=== PATIENT | male | born 1980 | race Hispanic/Latino ===

== ENCOUNTER 2020-07-27 13:09 | Emergency (ER) | payer MEDICARE ==
--- NOTE | 2020-07-27 14:00 | Event Note ---
ED Screening Note Date of service: 07/27/20 Time: 13:56 ED Screening Note: intermittent pain in the chest, abdomen and penis over the past many years, he states it will occur hourly but is more frequent now. He denies any current pain. This initial assessment/diagnostic orders/clinical plan/treatment(s) is/are subject to change based on patients health status, clinical progression and re- assessment by fellow clinical providers in the ED. Further treatment and workup at subsequent clinical providers discretion. Patient/guardian urged not to elope from the ED as their condition may be serious if not clinically assessed and managed. Initial orders include: UA, labs
[2020-07-27 14:32] LABS: Basophils # (Auto) 0.1 K/mm3 (0.0-0.1); Basophils % (Auto) 1.1 % (0.0-1.8); Eosinophils # (Auto) 0.1 K/mm3 (0.0-0.4); Eosinophils % (Auto) 1.7 % (0.0-4.3); Hematocrit 42.6 % (35.5-45.6); Hemoglobin 14.4 gm/dl (11.8-15.2); Lymphocytes % (Auto) 23.1 % (13.4-35.0); Mean Corpuscular HGB Conc 34 % (32-34); Mean Corpuscular Volume 95 fl (84-94); Monocytes # (Auto) 0.6 K/mm3 (0.0-0.8); Monocytes % (Auto) 6.7 % (0.0-7.3); Platelet Count 266 K/mm3 (140-440); Red Blood Count 4.48 M/mm3 (3.65-5.03); Red Cell Distribution Width 13.1 % (13.2-15.2)
--- NOTE | 2020-07-27 14:33 | XRay Report ---
CHEST 2 VIEWS INDICATION / CLINICAL INFORMATION: chest pain. COMPARISON: None available. FINDINGS: SUPPORT DEVICES: None. HEART / MEDIASTINUM: No significant abnormality. LUNGS / PLEURA: No significant pulmonary or pleural abnormality. No pneumothorax. ADDITIONAL FINDINGS: No significant additional findings. IMPRESSION: 1. No acute findings. Signer Name: Cameron Cooper MD Signed: 07/27/2020 2:28 PM Workstation Name: [id number]
[2020-07-27 15:02] LABS: Alanine Aminotransferase 18 units/L (7-56); Albumin 4.7 g/dL (3.9-5); BUN/Creatinine Ratio 7; Blood Urea Nitrogen 6 mg/dL (9-20); Hemolysis Index 5
[2020-07-27 17:36] VITALS: BP 125/75
--- NOTE | 2020-07-27 17:46 | Emergency Department Report ---
ED Chest Pain HPI - General Chief Complaint: Chest Pain Stated Complaint: DIARERHA/TESTICAL PAIN/DIZZY Time Seen by Provider: 07/27/20 17:06 Source: patient Mode of arrival: Ambulatory Limitations: No Limitations - History of Present Illness Initial Comments: Patient is a 39-year-old male with an apparent history of schizophrenia from the [facility] program of [place]. He is on several current psychiatric medications. He tells me he is from [place]. Apparently he had an involuntary confinement at [facility] initially and then transferred to the [facility] program where he has been for the last 2 weeks. According to the medical screening he has very chronic symp toms: intermittent pain in the chest, abdomen and penis over the past many years, he states it will occur hourly but is more frequent now. He denies any current pain. Patient does not complain of any acute chest pain to me at this time. He does not state that "penis numbness and testicles are hurting. Does not complain of diarrhea. He is not complaining of shortness of breath whatsoever. Is not had any cough. He states he has had a recent "low-grade fever" which he describes as a temperature of 99.2. It does appear that that the patient has quite a number of somatic type symptoms which are nonacute in nature. It would appear that he has a history of schizophrenia. He lists approximately 5 psychiatric medicines that he is taking right now to include Abilify. Patient describes his chest pain to be as associated with "stomach bubbling" and "my heart hurting". He did state he took Zantac in the past for this. MD Complaint: chest pain -: week(s) Onset: during rest Pain Location: substernal, epigastric Pain Radiation: none Severity: mild Quality: other (Bubbling and burning) Consistency: intermittent, now resolved Improves With: nothing Worsens With: nothing re: denies: nausea, vomting, diaphoresis, dyspnea, sense of impending doom Other Symptoms: fever (Question "low-grade"). denies: cough, syncope - Related Data Previous Rx's Medication Instructions Recorded Last Taken Type Lansoprazole 15 mg PO BID #14 capsule. 07/27/20 Unknown Rx Allergies Allergy/AdvReac Type Severity Reaction Status Date / Time bupropion [From Wellbutrin] AdvReac Severe Unknown Verified 07/27/20 13:30 phenytoin [From Dilantin] AdvReac Unknown Verified 07/27/20 13:30 tramadol AdvReac Unknown Verified 07/27/20 13:30 Heart Score - HEART Score History: Slightly suspicious EKG: Normal Age: < 45 Risk factors: 1-2 risk factors Troponin: < normal limit HEART Score: 1 - Critical Actions Critical Actions: 0-3 pts:0.9-1.7%risk of adverse cardiac event.Candidate for discharge ED Review of Systems ROS: Stated complaint: DIARERHA/TESTICAL PAIN/DIZZY Other details as noted in HPI Constitutional: denies: chills, fever Eyes: denies: eye pain, vision change ENT: denies: ear pain, throat pain Respiratory: denies: cough, shortness of breath Cardiovascular: chest pain. denies: palpitations Endocrine: no symptoms reported Gastrointestinal: as per HPI. denies: abdominal pain, nausea Genitourinary: as per HPI. denies: urgency, dysuria, frequency, hematuria, discharge, testicular pain, testicular mass Musculoskeletal: denies: back pain, arthralgia Skin: denies: rash, lesions Neurological: denies: headache, weakness, paresthesias Psychiatric: denies: anxiety, depression Hematological/Lymphatic: denies: easy bleeding, easy bruising ED Past Medical Hx - Past Medical History Hx Seizures: Yes Additional medical history: Schizophrenia? - Social History Smoking Status: Current Some Day Smoker Substance Use Type: None - Medications Home Medications: Home Medications Medication Instructions Recorded Confirmed Last Taken Type Lansoprazole 15 mg PO BID #14 capsule. 07/27/20 Unknown Rx ED Physical Exam - General Limitations: No Limitations General appearance: alert, in no apparent distress - Head Head exam: Present: atraumatic, normocephalic - Eye Eye exam: Present: normal appearance. Absent: scleral icterus - ENT ENT exam: Present: mucous membranes moist - Neck Neck exam: Present: normal inspection - Respiratory Respiratory exam: Present: normal lung sounds bilaterally. Absent: respiratory distress - Cardiovascular Cardiovascular Exam: Present: regular rate, normal rhythm. Absent: systolic murmur, diastolic murmur, rubs, gallop - GI/Abdominal GI/Abdominal exam: Present: soft, normal bowel sounds. Absent: distended, tenderness, guarding, rebound - Rectal Rectal exam: Present: deferred - Extremities Exam Extremities exam: Present: normal inspection - Back Exam Back exam: Present: normal inspection - Neurological Exam Neurological exam: Present: alert, oriented X3, CN II-XII intact. Absent: motor sensory deficit - Psychiatric Psychiatric exam: Present: normal affect, normal mood - Skin Skin exam: Present: warm, dry, intact, normal color. Absent: rash ED Course Vital Signs 07/27/20 07/27/20 07/27/20 13:26 17:12 17:15 Temperature 98.8 F Pulse Rate 76 76 Respiratory 22 Rate Blood Pressure 141/76 O2 Sat by Pulse 97 100 100 Oximetry 07/27/20 17:31 Temperature Pulse Rate 68 Respiratory Rate Blood Pressure 125/75 O2 Sat by Pulse 100 Oximetry - Reevaluation(s) Reevaluation #1: No active pain complaints in the emergency department. 07/27/20 17:49 UDAY score - Uday Score Age > 65: (0) No Aspirin use within the Past 7 Days: (0) No 3 or more CAD Risk Factors: (0) No 2 or more Angina events in past 24 hrs: (0) No Known CAD with more than 50% Stenosis: (0) No Elevated Cardiac Markers: (0) No ST Deviation Greater than 0.5mm: (0) No UDAY Score: 0 ED Medical Decision Making - Lab Data Result diagrams: 07/27/20 14:07 07/27/20 14:07 Laboratory Results - last 24 hr 07/27/20 07/27/20 07/27/20 14:07 14:07 14:07 WBC 8.6 RBC 4.48 Hgb 14.4 Hct 42.6 MCV 95 H MCH 32 MCHC 34 RDW 13.1 L Plt Count 266 Lymph % (Auto) 23.1 [place] % (Auto) 6.7 Eos % (Auto) 1.7 Baso % (Auto) 1.1 Lymph # (Auto) 2.0 [place] # (Auto) 0.6 Eos # (Auto) 0.1 Baso # (Auto) 0.1 Seg Neutrophils % 67.4 Seg Neutrophils # 5.8 Sodium 140 Potassium 3.8 Chloride 102.6 Carbon Dioxide 31 H Anion Gap 10 BUN 6 L Creatinine 0.9 Estimated GFR > 60 BUN/Creatinine Ratio 7 Glucose 130 H Calcium 9.0 Total Bilirubin 0.60 AST 14 ALT 18 Alkaline Phosphatase 56 Troponin T < 0.010 Total Protein 7.0 Albumin 4.7 Albumin/Globulin Ratio 2.0 Lipase 34 - EKG Data -: EKG Interpreted by Me EKG shows normal: sinus rhythm, axis, intervals, QRS complexes, ST-T waves Rate: normal (Mild early repole) Critical care attestation.: If time is entered above; I have spent that time in minutes in the direct care of this critically ill patient, excluding procedure time. ED Disposition Clinical Impression: Atypical chest pain, Psychiatric disorder, Somatization disorder GERD (gastroesophageal reflux disease) Qualifiers: Esophagitis presence: esophagitis presence not specified Qualified Code(s): K21.9 - Gastro-esophageal reflux disease without esophagitis Disposition: - TO HOME OR SELFCARE Is pt being admited?: No Does the pt Need Aspirin: No Condition: Stable Instructions: Nonspecific Chest Pain, Adult, Gastroesophageal Reflux Disease, Adult, [id number] Additional Instructions: You may try taking the prescription for the bubbling type sensation of your stomach. This may be of benefit. Return to the emergency department any acute problems as needed. Follow-up with the primary care clinic nearby. Prescriptions: Lansoprazole 15 mg PO BID #14 capsule. Referrals: PRIMARY CARE, [Primary Care Provider] - 3-5 Days Time of Disposition: 17:51
--- NOTE | 2020-07-28 09:55 | Electrocardiograph Report ---
[facility] Test Date: 2020-07-27 Test Time: 17:23:37 Pat Name: GAY CROFT Department: Room: Gender: M Account Development Specialist: JOYCE : 1980 Requested By: DORA COREY Order Number: [id number] Reading MD: Kong Mcintosh Measurements Intervals [place] Rate: 60 P: 65 CO: 178 QRS: 65 QRSD: 92 T: 60 QT: 383 QTc: 382 Interpretive Statements Sinus rhythm ST elev, probable normal early repol pattern No previous ECG available for comparison Electronically Signed On 07-28-2020 6:54:58 PDT by Kong Mcintosh
== END 2020-07-27 18:13 | disposition home or self-care (01) ==
LOC: ED 13:09
DX: K21.9 Gastro-esophageal reflux disease without esophagitis (principal); F45.0 Somatization disorder; R07.89 Other chest pain; R56.9 Unspecified convulsions; Z79.899 Other long term (current) drug therapy; Z88.8 Allergy status to other drugs, medicaments and biological substances
CPT/HCPCS: 36415; 71046; 80053; 83690; 84484; 85025; 93005